=== PATIENT | female | born 1990 | race Caucasian/White ===

== ENCOUNTER 2020-02-18 20:25 | Emergency (ER) | payer OTHER ==
[~2020-02-18] VITALS: Ht 160 cm; Wt 110.2 kg
--- NOTE | 2020-02-18 20:35 | NUR ---
Pt ambulated to bed 6 with steady gait.
[2020-02-18 20:43] VITALS: BP 142/103
--- NOTE | 2020-02-18 20:43 | NUR ---
PT BIB self C/O dull constant pain at [facility] drain insertion site at 07/02, Drain was inserted at [facility] 2 weeks ago S/P cholecystectomy. Insertion site has some redness present, PT denies discharge around drain or foul odor, 10 ml of clear yellowish/white drainage in [facility] drain per last 24 hours. PT also reports intermitent epigastric pain and intermitent nausea.
--- NOTE | 2020-02-18 21:07 | NUR ---
Dr Celaya at bedside
[2020-02-18 21:27] VITALS: BP 132/85
--- NOTE | 2020-02-18 21:27 | NUR ---
Patient discharged with v/s stable. Written and verbal after care instructions given and explained. Patient verbalized understanding. Ambulatory with steady gait. All questions addressed prior to discharge. Advised to follow up with surgeon.
== END 2020-02-18 21:27 | disposition home or self-care (01) ==
LOC: MED 20:25
DX: T81.89XA Other complications of procedures, not elsewhere classified, initial encounter (principal); Z48.03 Encounter for change or removal of drains; Z90.49 Acquired absence of other specified parts of digestive tract
CPT/HCPCS: 99281